=== PATIENT | female | born 1960 | race Caucasian/White ===

== ENCOUNTER 2016-10-01 20:58 | Emergency (ER) | payer OTHER ==
[~2016-10-01] VITALS: Ht 165.1 cm; Wt 54.4 kg
--- NOTE | ~2016-10-01 | EKG ---
[address] [address] ELECTROCARDIOGRAM REPORT Name: YULIA BOYER [facility] [id number] Admission: 10/01/16 Attend Phys: Discharge: 10/01/16 Date of : 56 Report #: [id number] THIS REPORT FOR: //name// [facility] ED Test Date: 2016-10-01 Test Time: 21:03:36 Pat Name: YULIA BOYER Department: Room: Gender: F Credit Collections Rep: adelina : 1960 Requested By: Amira Alberto Order Number: [id number] MD: Greg Gannon Measurements Intervals [place] Rate: 86 P: 79 [place]: 158 QRS: 61 QRSD: 97 T: 70 QT: 376 QTc: 450 Interpretive Statements Sinus rhythm Right atrial enlargement Compared to ECG 08/30/2011 09:47:33 Atrial abnormality now present Electronically Signed On 10-02-2016 7:57:34 CDT by Greg Gannon [email or web address] <ELECTRONICALLY SIGNED> By: Greg Gannon MD, [facility] 10/02/16 0757 2103 02 Greg Gannon MD, FACC /EPI
[~2016-10-01 20:58] MED LIST: AMOXICILLIN 50500 MG PO; COMBIVENT INH; LEVOTHYROXINE0.05 MG NG; PROTONIX40 MG PO; TRAMADOL 50 MG50 MG PO; ZPAK PO
[2016-10-01 21:37] LABS: HEMATOCRIT 41.8 % (37.0-47.0); HEMOGLOBIN 14.2 gm/dL (12.0-15.0); MCH 29.8 pg (26.0-34.0); MCHC 33.9 g/dL (28.0-37.0); MCV 87.8 fL (80.0-100.0); PLATELET COUNT 226 thou/uL (150-400); RBC 4.76 mil/uL (4.20-5.00); RDW 13.9 % (10.5-14.5); WBC 5.4 thou/uL (4.0-11.0)
[2016-10-01 21:41] LABS: MANUAL DIFF YES
[2016-10-01 21:48] LABS: ANION GAP 7 mmol/L (7-16); BUN 6 mg/dL (7-18); CALCIUM 9.2 mg/dL (8.5-10.1); CHLORIDE 103 mmol/L (98-107); CO2 29 mmol/L (21-32); CREATININE 0.8 mg/dL (0.6-1.0); GLUCOSE 112 mg/dL (74-106); POTASSIUM 4.2 mmol/L (3.5-5.1); SODIUM 139 mmol/L (136-145)
[2016-10-01 21:56] LABS: TROPONIN-I < 0.04 ng/mL (<0.04-0.07)
[2016-10-01] MEDS ORDERED: TESSALON PERLE100 MG PO (22:02)
[2016-10-01] MEDS ORDERED: PROVENTIL HFA6.7 G1 INH (22:02)
[2016-10-01] MEDS ORDERED: CLARITIN10 MG PO (22:02)
[2016-10-01 22:17] LABS: ATYPICAL LYMPHS 1 %; TOTAL CELL COUNT 100
[2016-10-01 22:48] VITALS: BP 117/79
== END 2016-10-01 22:49 | disposition home or self-care (01) ==
LOC: ER 20:58
PROVIDERS: Emergency Medicine
DX: J06.9 Acute upper respiratory infection, unspecified (principal); R07.89 Other chest pain; F17.210 Nicotine dependence, cigarettes, uncomplicated; Z88.6 Allergy status to analgesic agent; Z88.5 Allergy status to narcotic agent

== ENCOUNTER 2018-07-16 20:51 | Emergency (ER) | payer OTHER ==
[~2018-07-16] VITALS: Ht 165.1 cm; Wt 59.0 kg
[~2018-07-16 20:51] MED LIST changes: +CLARITIN10 MG PO; +PROVENTIL HFA6.7 G1 INH; +TESSALON PERLE100 MG PO
[2018-07-16] MEDS ORDERED: SYNTHROID100 MC1 PO (20:59)
[2018-07-16] MEDS ORDERED: PREDNISONE 20 M20 MG PO (23:48)
[2018-07-16] MEDS ORDERED: VENTOLIN HFA INH8 GM INH (23:48)
[2018-07-16 23:57] VITALS: BP 100/62
== END 2018-07-16 23:57 | disposition home or self-care (01) ==
LOC: ER 20:51
DX: J40 Bronchitis, not specified as acute or chronic (principal); F17.210 Nicotine dependence, cigarettes, uncomplicated; E03.9 Hypothyroidism, unspecified; Z88.5 Allergy status to narcotic agent; Z88.8 Allergy status to other drugs, medicaments and biological substances

== ENCOUNTER 2018-09-11 11:50 | Emergency (ER) | payer OTHER ==
[~2018-09-11] VITALS: Ht 162.6 cm; Wt 59.0 kg
[~2018-09-11 11:50] MED LIST changes: +PREDNISONE 20 M20 MG PO; +SYNTHROID100 MC1 PO; +VENTOLIN HFA INH8 GM INH
--- NOTE | 2018-09-11 12:22 | EKG ---
[place] [address] [facility] [place] [address] ELECTROCARDIOGRAM REPORT Name: YULIA BOYER Room #: PRE [facility].#: [id number] ������������������ Admission: ������������������ Attend Phys: Discharge: ������������������ Date of : 56 Report #: [id number] ����������������������������������������������������������������� [id number] THIS REPORT FOR: //name// [facility] ED Test Date: 2018-09-11 Test Time: 12:14:34 Pat Name: YULIA BOYER Department: Room: Gender: F Questioned Documents Examiner: GREG : 1960 Requested By: Keegan Thakkar Order Number: [id number] MD: Greg Gannon Measurements Intervals [place] Rate: 91 P: 70 [place]: 154 QRS: 11 QRSD: 88 T: 53 QT: 371 QTc: 457 Interpretive Statements Sinus rhythm Normal tracing Compared to ECG 10/01/2016 21:03:36 No significant changes Electronically Signed On 09-11-2018 12:22:00 CDT by Greg Gannon [email or web address] ��������������������������������������������� <ELECTRONICALLY SIGNED> ���������������������������������������� By: Greg Gannon MD, [facility] ��������������������������������������������� 09/11/18 1222 1214 1214 Greg Gannon MD, FACC /EPI
[2018-09-11 13:05] LABS: HEMATOCRIT 44.8 % (37.0-47.0); HEMOGLOBIN 15.4 gm/dL (12.0-15.0); MCH 30.9 pg (26.0-34.0); MCHC 34.3 g/dL (28.0-37.0); MCV 90.1 fL (80.0-100.0); RBC 4.98 mil/uL (4.20-5.00); RDW 13.8 % (10.5-14.5); WBC 10.4 thou/uL (4.0-11.0)
[2018-09-11 13:46] LABS: ANION GAP 9 mmol/L (7-16); BUN 16 mg/dL (7-18); CALCIUM 9.4 mg/dL (8.5-10.1); CHLORIDE 105 mmol/L (98-107); CO2 27 mmol/L (21-32); CREATININE 1.2 mg/dL (0.6-1.0); GLUCOSE 136 mg/dL (74-106); POTASSIUM 4.7 mmol/L (3.5-5.1); SODIUM 141 mmol/L (136-145)
[2018-09-11 13:53] LABS: TROPONIN-I <0.06 ng/mL (<0.06)
[2018-09-11] MEDS ORDERED: VENTOLIN HFA 1818 GM INH (14:38)
[2018-09-11] MEDS ORDERED: PREDNISONE 10 M10 MG PO (14:38)
[2018-09-11] MEDS ORDERED: AZITHROMYCIN 2250 MG PO (14:38)
[2018-09-11 15:00] VITALS: BP 109/71
== END 2018-09-11 18:34 | disposition home or self-care (01) ==
LOC: ER 11:50
PROVIDERS: Emergency Medicine
DX: J44.1 Chronic obstructive pulmonary disease with (acute) exacerbation (principal); M54.5 Low back pain; E03.9 Hypothyroidism, unspecified; F17.210 Nicotine dependence, cigarettes, uncomplicated; Z88.5 Allergy status to narcotic agent; Z88.6 Allergy status to analgesic agent

== ENCOUNTER 2018-12-30 00:09 | Emergency (ER) | payer OTHER ==
[~2018-12-30] VITALS: Ht 162.6 cm; Wt 61.2 kg
[~2018-12-30 00:09] MED LIST changes: +AZITHROMYCIN 2250 MG PO; +PREDNISONE 10 M10 MG PO; +VENTOLIN HFA 1818 GM INH
[2018-12-30] MEDS ORDERED: SYNTHROID100 MC1 PO (00:20)
[2018-12-30 02:30] VITALS: BP 110/56
[2018-12-30] MEDS ORDERED: NAPROSYN500 MG PO (02:54)
[2018-12-30] MEDS ORDERED: MEDROLDOSEPACK PO (02:54)
[2018-12-30] MEDS ORDERED: ULTRAM 50MG TAB50 MG PO (02:54)
[2018-12-30] MEDS ORDERED: NORFLEX100 MG PO (02:54)
[2018-12-30 09:15] LABS: URINE BILIRUBIN NEGATIVE (Negative); URINE BLOOD NEGATIVE (Negative); URINE CLARITY CLEAR; URINE COLOR YELLOW; URINE GLUCOSE-RANDOM* NEGATIVE (Negative); URINE KETONES NEGATIVE (Negative); URINE LEUKOCYTES-REFLEX TRACE (Negative); URINE NITRITE-REFLEX NEGATIVE (Negative); URINE PROTEIN (DIPSTICK) NEGATIVE (Negative); URINE UROBILINOGEN 0.2 E.U./dl (0.2-1.0)
== END 2018-12-30 03:13 | disposition home or self-care (01) ==
LOC: ER 00:09
PROVIDERS: Emergency Medicine
DX: M54.42 Lumbago with sciatica, left side (principal); F17.210 Nicotine dependence, cigarettes, uncomplicated; E03.9 Hypothyroidism, unspecified; Z88.5 Allergy status to narcotic agent; Z88.8 Allergy status to other drugs, medicaments and biological substances

== ENCOUNTER 2019-06-20 16:41 | Emergency (ER) | payer OTHER ==
[~2019-06-20] VITALS: Ht 162.6 cm; Wt 63.5 kg
[~2019-06-20 16:41] MED LIST changes: +MEDROLDOSEPACK PO; +NAPROSYN500 MG PO; +NORFLEX100 MG PO; +ULTRAM 50MG TAB50 MG PO
[2019-06-20] MEDS ORDERED: FLONASE 0.05%50 MCG NARES (18:01)
[2019-06-20] MEDS ORDERED: PROAIR HFA8.5 GM INH (18:01)
[2019-06-20] MEDS ORDERED: TESSALON PERLE100 M1 PO (18:01)
[2019-06-20 18:11] VITALS: BP 130/104
== END 2019-06-20 18:12 | disposition home or self-care (01) ==
LOC: ER 16:41
DX: R05 Cough (principal); R09.81 Nasal congestion; E03.9 Hypothyroidism, unspecified; F17.210 Nicotine dependence, cigarettes, uncomplicated; Z88.6 Allergy status to analgesic agent

== ENCOUNTER 2021-04-21 12:54 | Emergency (ER) | payer OTHER ==
[~2021-04-21] VITALS: Ht 167.6 cm; Wt 61.2 kg
[2021-04-21 12:54] VITALS: BP 123/73
[~2021-04-21 12:54] MED LIST changes: +FLONASE 0.05%50 MCG NARES; +PROAIR HFA8.5 GM INH; +TESSALON PERLE100 M1 PO
[2021-04-21 13:34] LABS: ABSOLUTE NEUTROPHILS 4.2 thou/uL (1.4-8.2); BASOPHILS 1.1 % (0.0-2.0); EOSINOPHILS 3.6 % (0.0-3.0); HEMATOCRIT 45.1 % (37.0-47.0); HEMOGLOBIN 14.8 gm/dL (12.0-15.0); LYMPHOCYTES 20.6 % (24.0-44.0); MCH 30.4 pg (26.0-34.0); MCHC 32.9 g/dL (28.0-37.0); MCV 92.4 fL (80.0-100.0); MONOCYTES 6.7 % (1.0-8.0); PLATELET COUNT 309 thou/uL (150-400); RBC 4.88 mil/uL (4.20-5.00); RDW 13.6 % (10.5-14.5); WBC 6.2 thou/uL (4.0-11.0)
[2021-04-21 13:44] LABS: ANION GAP 8 mmol/L (7-16); BUN 13 mg/dL (7-18); CALCIUM 9.5 mg/dL (8.5-10.1); CHLORIDE 103 mmol/L (98-107); CO2 28 mmol/L (21-32); CREATININE 0.8 mg/dL (0.6-1.0); GLUCOSE 118 mg/dL (74-106); POTASSIUM 4.7 mmol/L (3.5-5.1); SODIUM 139 mmol/L (136-145)
[2021-04-21 13:55] LABS: ALBUMIN 3.7 g/dL (3.4-5.0); SGOT 18 U/L (15-37); SGPT 19 U/L (30-65); TOTAL BILIRUBIN 0.2 mg/dL (0.2-1.0); TOTAL PROTEIN 7.5 g/dL (6.4-8.2)
[2021-04-21] MEDS ORDERED: PROAIR HFA8.5 GM INH (16:00)
[2021-04-21] MEDS ORDERED: MEDROLDOSEPACK PO (16:00)
--- NOTE | 2021-04-22 12:29 | EKG ---
[address] [address] ELECTROCARDIOGRAM REPORT Name: YULIA BOYER [id number] Admission: 04/21/21 Attend Phys: Discharge: 04/21/21 Date of : 56 Report #: [id number] [facility] ED Test Date: 2021-04-21 Test Time: 15:45:20 Pat Name: YULIA BOYER Department: Room: Gender: F Electrician'S Assistant: : 1960 Requested By: Aruna Elliott Order Number: [id number] MD: Vel Maravilla Measurements Intervals [place] Rate: 65 P: 51 [place]: 152 QRS: 21 QRSD: 102 T: 55 QT: 451 QTc: 469 Interpretive Statements Sinus rhythm Atrial premature complex Compared to ECG 09/11/2018 12:14:34 Atrial premature complex(es) now present Electronically Signed On 04-22-2021 12:29:34 DIAMOND SIZER by Vel Maravilla [email or web address] <ELECTRONICALLY SIGNED> By: Vel Maravilla MD 04/22/21 1229 1545 1545 Vel Maravilla MD /EPI
== END 2021-04-21 16:02 | disposition home or self-care (01) ==
LOC: ER 12:54
PROVIDERS: Emergency Medicine
DX: R07.89 Other chest pain (principal); Z20.822 Contact with and (suspected) exposure to COVID-19; J44.1 Chronic obstructive pulmonary disease with (acute) exacerbation; E03.9 Hypothyroidism, unspecified; F41.9 Anxiety disorder, unspecified; F17.210 Nicotine dependence, cigarettes, uncomplicated; Z79.51 Long term (current) use of inhaled steroids; Z79.899 Other long term (current) drug therapy; Z88.5 Allergy status to narcotic agent; Z88.6 Allergy status to analgesic agent; Z88.8 Allergy status to other drugs, medicaments and biological substances